=== PATIENT | male | born 2000 | race Caucasian/White ===

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

== ENCOUNTER 2020-12-25 15:26 | Emergency (ER) | payer SELFPAY ==
[~2020-12-25] VITALS: Ht 165.1 cm; Wt 76.5 kg
[2020-12-25 17:38] VITALS: BP 129/85
--- NOTE | 2020-12-25 17:39 | EKG ---
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
[2020-12-25 18:05] LABS: BASO % 0 % (0-3); EOS % 0 % (0-3); HEMATOCRIT 51.4 % (39.0-53.0); HEMOGLOBIN 17.5 g/dL (13.0-17.5); LYMPH # 1.9 x10^3/uL (1.0-4.8); LYMPH % 25 % (24-48); MEAN CORPUSCULAR HEMOGLOBIN 32 pg (25-35); MEAN CORPUSCULAR HGB CONC 34 g/dL (31-37); MEAN CORPUSCULAR VOLUME 92 fL (79-100); MONO # 0.5 x10^3/uL (0.0-1.1); MONO % 7 % (0-9); NEUT % 67 % (31-73); PLATELET COUNT 360 x10^3/uL (140-400); RED BLOOD COUNT 5.56 x10^6/uL (4.30-5.70); RED CELL DISTRIBUTION WIDTH 13.5 % (11.5-14.5); WHITE BLOOD COUNT 7.4 x10^3/uL (4.0-11.0)
[2020-12-25 18:18] LABS: CALCIUM 8.6 mg/dL (8.5-10.1); CREATININE 0.8 mg/dL (0.7-1.3); GFR 123.2; POTASSIUM 3.2 mmol/L (3.5-5.1)
[2020-12-25 18:27] LABS: ALBUMIN 4.1 g/dL (3.4-5.0); ALBUMIN/GLOBULIN RATIO 1.1 (1.0-1.7); TOTAL BILIRUBIN 0.7 mg/dL (0.2-1.0); TOTAL PROTEIN 7.8 g/dL (6.4-8.2)
--- NOTE | 2020-12-25 19:49 | PHYS DOC ---
Past Medical History Past Medical History: No Pertinent History Past Surgical History: Other Additional Past Surgical Histo: BILATERAL WRISTS, Smoking Status: Current Every Day Smoker Additional Information: pt vapes Alcohol Use: Heavy Drug Use: None Social History Narrative: unknown drug last night, states possibly cocaine General Adult EDM: Chief Complaint: HEMATEMESIS/VOMITING BLOOD HPI: HPI: Patient is a 20 year old male who presents with nausea/vomiting. Patient states "I noticed he had blood in my vomit this morning". Patient reports episode happened 1 time. Patient states "I drink a lot last night and I also think I made it and cocaine but I am not sure". Patient states he normally does not do drugs or drink often. Denies medical history. Denies daily meds. Patient uses a vape. Review of Systems: Review of Systems: ROS At least 10 ROS systems have been reviewed and are negative except as documented in the HPI. General: Negative except as outlined in HPI above. Skin: Negative except as outlined in HPI above. HEENT: Negative except as outlined in HPI above. Neck: Negative except as outlined in HPI above. Respiratory: Negative except as outlined in HPI above.. Cardiovascular: Negative except as outlined in HPI above. Abdomen: Negative except as outlined in HPI above. : Negative except as outlined in HPI above. Back/MSK: Negative except as outlined in HPI above. Neuro: Negative except as outlined in HPI above. Psych: Negative except as outlined in HPI above. Heart Score: C/O Chest Pain: No Risk Factors: Risk Factors: DM, Current or recent (<one month) smoker, HTN, HLP, family history of CAD, obesity. Risk Scores: Score 0 - 3: 2.5% MACE over next 6 weeks - Discharge Home Score 4 - 6: 20.3% MACE over next 6 weeks - Admit for Clinical Observation Score 7 - 10: 72.7% MACE over next 6 weeks - Early Invasive Strategies Allergies: Allergies: Allergies Coded Allergies Type Severity Reaction Last Updated Verified No Known Drug Allergies 07/29/18 No Physical Exam: PE: Constitutional: Well developed, well nourished, no acute distress, non-toxic appearance. [] HENT: Normocephalic, atraumatic, bilateral external ears normal, oropharynx moist, no oral exudates, nose normal. [] Eyes: PERRLA, EOMI, conjunctiva normal, no discharge. [] Neck: Normal range of motion, no tenderness, supple, no stridor. [] Cardiovascular:Heart rate regular rhythm, no murmur [] Lungs & Thorax: Bilateral breath sounds clear to auscultation [] Abdomen: Bowel sounds normal, soft, no tenderness Skin: Warm, dry, no erythema, no rash. [] Back: No tenderness, no CVA tenderness. [] Extremities: No tenderness, no cyanosis, no clubbing, ROM intact, no edema. [] Neurologic: Alert and oriented X 3, normal motor function, normal sensory function, no focal deficits noted. [] Psychologic: Affect normal, judgement normal, mood normal. [] Current Patient Data: Labs: Laboratory Tests Test 12/25/20 16:20 White Blood Count 7.4 x10^3/uL (4.0-11.0) Red Blood Count 5.56 x10^6/uL (4.30-5.70) Hemoglobin 17.5 g/dL (13.0-17.5) Hematocrit 51.4 % (39.0-53.0) Mean Corpuscular Volume 92 fL (79-100) Mean Corpuscular Hemoglobin 32 pg (25-35) Mean Corpuscular Hemoglobin Concent 34 g/dL (31-37) Red Cell Distribution Width 13.5 % (11.5-14.5) Platelet Count 360 x10^3/uL (140-400) Neutrophils (%) (Auto) 67 % (31-73) Lymphocytes (%) (Auto) 25 % (24-48) Monocytes (%) (Auto) 7 % (0-9) Eosinophils (%) (Auto) 0 % (0-3) Basophils (%) (Auto) 0 % (0-3) Neutrophils # (Auto) 5.0 x10^3/uL (1.8-7.7) Lymphocytes # (Auto) 1.9 x10^3/uL (1.0-4.8) Monocytes # (Auto) 0.5 x10^3/uL (0.0-1.1) Eosinophils # (Auto) 0.0 x10^3/uL (0.0-0.7) Basophils # (Auto) 0.0 x10^3/uL (0.0-0.2) Sodium Level 144 mmol/L (136-145) Potassium Level 3.2 mmol/L (3.5-5.1) L Chloride Level 102 mmol/L (98-107) Carbon Dioxide Level 31 mmol/L (21-32) Anion Gap 11 (6-14) Blood Urea Nitrogen 3 mg/dL (8-26) L Creatinine 0.8 mg/dL (0.7-1.3) Estimated GFR (Cockcroft-Gault) 123.2 BUN/Creatinine Ratio 4 (6-20) L Glucose Level 90 mg/dL (70-99) Calcium Level 8.6 mg/dL (8.5-10.1) Total Bilirubin 0.7 mg/dL (0.2-1.0) Aspartate Amino Transferase (AST) 162 U/L (15-37) H Alanine Aminotransferase (ALT) 168 U/L (16-63) H Alkaline Phosphatase 158 U/L (46-116) H Total Protein 7.8 g/dL (6.4-8.2) Albumin 4.1 g/dL (3.4-5.0) Albumin/Globulin Ratio 1.1 (1.0-1.7) Laboratory Tests 12/25/20 16:20 Laboratory Tests 12/25/20 16:20 Vital Signs: Vital Signs Date Time Temp Pulse Resp B/P (MAP) Pulse Ox O2 Delivery O2 Flow Rate FiO2 12/25/20 17:38 102 18 129/85 (100) 97 Room Air 12/25/20 16:02 98.4 98.4 EKG: EKG: [] Radiology/Procedures: Radiology/Procedures: [] Course & Med Decision Making: Course & Med Decision Making Pertinent Labs and Imaging studies reviewed. (See chart for details) [] 20-year-old male presents with hematemsis, nausea , and abdominal pain. Patient reports one episode of vomiting. Work-up in the ER consisted of labs, CT abdomen, urinalysis. Pain treated in the ER. Patient is hemodynamically stable on arrival. All labs unremarkable. Patient is refusing CT of his abdomen. Patient stating he wants to leave the ER because he feels better. Patient signed AMA paperwork. Hemodynamically stable upon disposition. Dragon Disclaimer: Dragon Disclaimer: This electronic medical record was generated, in whole or in part, using a voice recognition dictation system. Departure Departure Impression: Primary Impression: Abdominal pain Qualified Codes: R10.9 - Unspecified abdominal pain Additional Impression: Nausea & vomiting Qualified Codes: R11.2 - Nausea with vomiting, unspecified Disposition: 07 LEFT AGAINST MEDICAL ADVICE Condition: STABLE Referrals: NO PCP (PCP) NUBIA BEACH APRN Dec 25, 2020 19:49
== END 2020-12-26 00:13 | disposition left against medical advice (07) ==
LOC: ER 15:26
DX: R11.2 Nausea with vomiting, unspecified (principal); R10.9 Unspecified abdominal pain; F17.200 Nicotine dependence, unspecified, uncomplicated; F10.20 Alcohol dependence, uncomplicated; Y90.9 Presence of alcohol in blood, level not specified
CPT/HCPCS: 36415; 80053; 83690; 85025; 93005; 99284

== ENCOUNTER 2021-04-05 13:53 | Inpatient (IN) | payer OTHER ==
[~2021-04-05] VITALS: Ht 175.3 cm; Wt 75.0 kg
[2021-04-05] MEDS ORDERED: FAMOTIDINE 20 MG/2 ML VIAL IVP ONE (14:30)
[2021-04-05] MEDS ORDERED: IV NORMAL SALINE 1000ML BAG 1,000 ML IV ONE (14:30)
[2021-04-05] MEDS ORDERED: ONDANSETRON PF 4 MG/2 ML VIAL. IVP ONE (14:30)
[2021-04-05] MEDS ORDERED: MULTIVIT INFUSN,ADULT 4,VIT K 10 ML, THIAMINE INJ 100 MG, FOLIC ACID INJ 1 MG in IV NOR... IV ONE (14:30)
[2021-04-05 14:35] LABS: BASO # 0.1 x10^3/uL (0.0-0.2); BASO % 1 % (0-3); EOS % 0 % (0-3); HEMATOCRIT 51.7 % (39.0-53.0); HEMOGLOBIN 18.1 g/dL (13.0-17.5); LYMPH # 1.6 x10^3/uL (1.0-4.8); LYMPH % 18 % (24-48); MEAN CORPUSCULAR HEMOGLOBIN 32 pg (25-35); MEAN CORPUSCULAR HGB CONC 35 g/dL (31-37); MEAN CORPUSCULAR VOLUME 90 fL (79-100); MONO # 0.7 x10^3/uL (0.0-1.1); MONO % 8 % (0-9); NEUT # 6.3 x10^3/uL (1.8-7.7); NEUT % 74 % (31-73); PLATELET COUNT 409 x10^3/uL (140-400); RED BLOOD COUNT 5.75 x10^6/uL (4.30-5.70); RED CELL DISTRIBUTION WIDTH 13.3 % (11.5-14.5); WHITE BLOOD COUNT 8.6 x10^3/uL (4.0-11.0)
[2021-04-05 14:43] LABS: CALCIUM 9.1 mg/dL (8.5-10.1); CREATININE 0.8 mg/dL (0.7-1.3); GFR 123.2; POTASSIUM 3.2 mmol/L (3.5-5.1)
[2021-04-05 14:50] LABS: ALBUMIN 4.3 g/dL (3.4-5.0); MAGNESIUM 1.7 mg/dL (1.8-2.4); TOTAL BILIRUBIN 1.4 mg/dL (0.2-1.0); TOTAL PROTEIN 8.4 g/dL (6.4-8.2)
[2021-04-05] MEDS ORDERED: POTASSIUM CHLORIDE 10 MEQ TABLET.ER. PO ONE (15:00)
[2021-04-05] MEDS ORDERED: MAGNESIUM SULFATE 2GM 50 ML IV ONE (15:00)
--- NOTE | 2021-04-05 15:13 | PHYS DOC ---
Past Medical History Past Medical History: No Pertinent History Additional Past Medical Histor: alcohol use disorder Past Surgical History: Other Additional Past Surgical Histo: BILATERAL WRISTS, Smoking Status: Never Smoker Alcohol Use: Heavy Drug Use: None General Adult EDM: Chief Complaint: WITHDRAWL HPI: HPI: Patient is a 20 year old M who presents with intractable nausea/vomiting. He reports epigastric pain and dysphagia associated with intractable nausea and vomiting. Patient also reports tremors and mild headache. Patient reports that he drinks 99 proof alcohol 750ml daily for the past 6-8 months. Patient reports his last drink was at 2 AM last night. Patient also reports having checked out to facility 1 month ago for alcohol withdrawal. Patient denies history of alcohol withdrawal related seizure. Review of Systems: Review of Systems: Constitutional: Denies fever or chills. Eyes: Denies redness or eye pain. HENT: Denies nasal congestion or sore throat. Respiratory: Denies cough or shortness of breath. Cardiovascular: Denies chest pain or palpitations. GI: Reports abdominal pain, nausea/vomiting, dysphagia : Denies dysuria or hematuria. Musculoskeletal: Denies back pain or joint pain. Integument: Denies rash or skin lesions . Neurologic: Denies headache, focal weakness or sensory changes. Complete systems were reviewed and found to be within normal limits, except as documented in this note. Heart Score: C/O Chest Pain: No Current Medications: Current Medications Medications (Trade) Dose Ordered Sig/Stewart Start Time Stop Time Status Last Admin Dose Admin Famotidine (Pepcid Vial) 20 mg 1X ONCE 04/05/21 14:30 04/05/21 14:31 DC 04/05/21 14:37 20 MG Lorazepam (Ativan Inj) 1 mg 1X ONCE 04/05/21 14:30 04/05/21 14:31 DC 04/05/21 14:40 1 MG Magnesium Sulfate 50 ml @ 25 mls/hr 1X ONCE 04/05/21 15:00 04/05/21 16:59 Multivitamins 10 ml/Thiamine HCl 100 mg/Folic Acid 1 mg/Sodium Chloride 1,011.2 ml @ 1,000.088 mls/hr 1X ONCE 04/05/21 14:30 04/05/21 15:30 04/05/21 14:36 1,000.088 MLS/HR Ondansetron HCl (Zofran) 4 mg 1X ONCE 04/05/21 14:30 04/05/21 14:31 DC 04/05/21 14:37 4 MG Potassium Chloride (Klor-Con) 40 meq 1X ONCE 04/05/21 15:00 04/05/21 15:01 DC Sodium Chloride 1,000 ml @ 1,000 mls/hr 1X ONCE 04/05/21 14:30 04/05/21 15:29 04/05/21 14:30 1,000 MLS/HR Allergies: Allergies: Allergies Coded Allergies Type Severity Reaction Last Updated Verified No Known Drug Allergies 04/05/21 No Physical Exam: PE: Constitutional: Well developed, acute distress, tremulous. HENT: Normocephalic, atraumatic. Eyes: PERRL, EOMI, conjunctiva normal, no discharge. Neck: Normal range of motion, no tenderness, supple. Lungs & Thorax: No respiratory distress, equal chest rise and fall. Abdomen: Soft, no tenderness. Skin: Warm, dry, no erythema, no rash. Back: No tenderness, no CVA tenderness. Extremities: No tenderness, ROM intact, no edema. Neurologic: Alert and oriented X4, normal motor function, normal sensory function, no focal deficits noted. No horizontal nystagmus. Psychologic: Affect normal, judgment normal. Current Patient Data: Labs: Laboratory Tests Test 04/05/21 14:29 White Blood Count 8.6 x10^3/uL (4.0-11.0) Red Blood Count 5.75 x10^6/uL (4.30-5.70) H Hemoglobin 18.1 g/dL (13.0-17.5) H Hematocrit 51.7 % (39.0-53.0) Mean Corpuscular Volume 90 fL (79-100) Mean Corpuscular Hemoglobin 32 pg (25-35) Mean Corpuscular Hemoglobin Concent 35 g/dL (31-37) Red Cell Distribution Width 13.3 % (11.5-14.5) Platelet Count 409 x10^3/uL (140-400) H Neutrophils (%) (Auto) 74 % (31-73) H Lymphocytes (%) (Auto) 18 % (24-48) L Monocytes (%) (Auto) 8 % (0-9) Eosinophils (%) (Auto) 0 % (0-3) Basophils (%) (Auto) 1 % (0-3) Neutrophils # (Auto) 6.3 x10^3/uL (1.8-7.7) Lymphocytes # (Auto) 1.6 x10^3/uL (1.0-4.8) Monocytes # (Auto) 0.7 x10^3/uL (0.0-1.1) Eosinophils # (Auto) 0.0 x10^3/uL (0.0-0.7) Basophils # (Auto) 0.1 x10^3/uL (0.0-0.2) Sodium Level 139 mmol/L (136-145) Potassium Level 3.2 mmol/L (3.5-5.1) L Chloride Level 97 mmol/L (98-107) L Carbon Dioxide Level 29 mmol/L (21-32) Anion Gap 13 (6-14) Blood Urea Nitrogen 6 mg/dL (8-26) L Creatinine 0.8 mg/dL (0.7-1.3) Estimated GFR (Cockcroft-Gault) 123.2 BUN/Creatinine Ratio 8 (6-20) Glucose Level 108 mg/dL (70-99) H Calcium Level 9.1 mg/dL (8.5-10.1) Magnesium Level 1.7 mg/dL (1.8-2.4) L Total Bilirubin 1.4 mg/dL (0.2-1.0) H Aspartate Amino Transferase (AST) 133 U/L (15-37) H Alanine Aminotransferase (ALT) 139 U/L (16-63) H Alkaline Phosphatase 223 U/L (46-116) H Total Protein 8.4 g/dL (6.4-8.2) H Albumin 4.3 g/dL (3.4-5.0) Albumin/Globulin Ratio 1.0 (1.0-1.7) Ethyl Alcohol Level 46 mg/dL (0-10) H Laboratory Tests 04/05/21 14:29 Laboratory Tests 04/05/21 14:29 Vital Signs: Vital Signs Date Time Temp Pulse Resp B/P (MAP) Pulse Ox O2 Delivery O2 Flow Rate FiO2 04/05/21 14:02 98.5 104 22 170/102 (124) 96 98.5 Course & Med Decision Making: Course & Med Decision Making Pertinent Labs and Imaging studies reviewed. (See chart for details) Patient presents with intractable nausea vomiting secondary to alcohol withdrawal. On presentation to the ED, vital signs stable. CIWA score on p resentation was 21. Blood alcohol level of 46. BMP significant for hypokalemia, hypomagnesemia, and elevated AST/ALT. In ED, patient was given fluid resuscitation with multivitamin, thiamine and electrolyte repletion. Patient given antiemetic and Ativan 1 mg x1. Placed on CIWA protocol. Patient requiring admission for further evaluation and treatment. Discussed with Dr. Brandt who is in agreement with admission. Discussed findings and plan with patient, who acknowledges understanding and agreement. Nayeli Disclaimer: Dragon Disclaimer: This electronic medical record was generated, in whole or in part, using a voice recognition dictation system. Departure Departure Referrals: NO PCP (PCP) PHAM STEEN DO Apr 05, 2021 15:13
[2021-04-05] MEDS ORDERED: ONDANSETRON PF 4 MG/2 ML VIAL. IVP PRN (15:15)
[2021-04-05] MEDS: IV NORMAL SALINE 1000ML BAG 1,000 ML IV SCH (16:36)
[2021-04-05 16:56] LABS: BARBITURATES NEG (NEG); BENZODIAZEPINES POS (NEG); CANNABINOIDS NEG (NEG); CLARITY,URINE CLEAR; COCAINE NEG (NEG); COLOR,URINE YELLOW; METHADONE NEG (NEG); OPIATES NEG (NEG); PHENCYCLIDINE NEG (NEG)
[2021-04-05 16:58] LABS: BILIRUBIN,URINE NEGATIVE (NEG); NITRITE,URINE NEGATIVE (NEG); PH,URINE 8.5 (<5.0-8.0); PROTEIN,URINE 30 mg/dL (NEG-TRACE); RBC,URINE 0 /HPF (0-2)
[2021-04-05 16:59] LABS: AMPHETAMINE/METHAMPHETAMINE NEG (NEG); BACTERIA,URINE 0 /HPF (0-FEW); WBC,URINE 0 /HPF (0-4)
--- NOTE | 2021-04-05 16:59 | HP ---
DATE OF SERVICE: 04/05/2021 ADMIT DATE: 04/05/2021 CHIEF COMPLAINT: Nausea, vomiting and alcohol withdrawal. HISTORY OF PRESENT ILLNESS: The patient is a pleasant middle-aged healthy male who drinks too much. He has been drinking a lot of 100 proof vodka. He has now developed intractable nausea and vomiting, so he cannot drink, so now he has alcohol withdrawal. I discussed the case with the ER physician. We are going to admit the patient, give him alcohol withdrawal protocol. PAST MEDICAL HISTORY: Alcoholism, bilateral wrist surgery. ALLERGIES: None. FAMILY HISTORY: Alcoholism. SOCIAL HISTORY: He drinks about a liter of 100 proof vodka a day. MEDICATIONS: Reviewed. Please refer to the MRAD. REVIEW OF SYSTEMS: GENERAL: No history of weight change, weakness or fevers. SKIN: No bruising, hair changes or rashes. EYES: No blurred, double or loss of vision. NOSE AND THROAT: No history of nosebleeds, hoarseness or sore throat. HEART: No history of palpitations, chest pain or shortness of breath on exertion. LUNGS: Denies cough, hemoptysis, wheezing or shortness of breath. GASTROINTESTINAL: He complains of nausea, vomiting. GENITOURINARY: No history of frequency, urgency, hesitancy or nocturia. NEUROLOGIC: He complains of shaking. PSYCHIATRIC: No history of panic, anxiety or depression. ENDOCRINE: No history of heat or cold intolerance, polyuria or polydipsia. EXTREMITIES: Denies muscle weakness, joint pain, pain on walking or stiffness. PHYSICAL EXAMINATION: VITALS: Within normal limits and are stable. GENERAL: No apparent distress. Alert and oriented. HEENT: Normal cephalic atraumatic, external auditory canals are patent. EYES: Extraocular muscles are intact, pupils are equally round and reactive to light and accommodation. MUSCULOSKELETAL: Well developed, well nourished, good range of motion. ENDOCRINE: No thyromegaly was palpated. LYMPHATICS: No cervical chain or axillary nodes were noted. HEMATOPOIETIC: No bruising. NECK: Supple, no JVD, no thyromegaly was noted. LUNGS: Clear to auscultation in all lung greene without rhonchi or wheezing. HEART: RRR, S1, S2 present. Peripheral pulses intact, no obvious murmurs were noted. ABDOMEN: Soft, nontender. Positive bowel sounds no organomegaly, normal bowel sounds. EXTREMITIES: Without any cyanosis, clubbing, or edema. Pedal pulses intact, Homans sign is negative. NEUROLOGIC: Normal speech, normal tone. A and O x 3, moves all extremities, no obvious focal deficits. PSYCHIATRIC: Normal affect, normal mood. Stable. SKIN: No ulcerations or rashes, good skin turgor, no jaundice. VASCULAR: Good capillary refill, neurovascular bundle appears to be intact. LABORATORY DATA: Hemoglobin is 18.1. Potassium is 3.2, magnesium 1.7, AST and ALT are high at 133 and 139 respectively. Alkaline phosphatase also high at 223. ASSESSMENT AND PLAN: Alcohol withdrawal. The patient has been admitted. We will start alcohol withdrawal protocol, vitamins and benzos, IV fluids, home meds. Deep venous thrombosis prophylaxis. Full code. Consult manager social media for possible alcohol treatment center. I told the patient to please quit drinking or this could negatively affect his health. CIRO DR: Elmo TID: [id number]
[2021-04-05 17:28] VITALS: BP 146/83
[2021-04-05 19:00] VITALS: BP 130/82
[2021-04-05 23:00] VITALS: BP 126/62
[2021-04-06] MEDS: IV NORMAL SALINE 1000ML BAG 1,000 ML IV SCH ×2 (01:30→07:15)
[2021-04-06 03:14] VITALS: BP 116/77
[2021-04-06 07:00] VITALS: BP 126/67
[2021-04-06] MEDS: PANTOPRAZOLE IV PUSH 40 MG VIAL. IVP SCH (07:44)
[2021-04-06 11:00] VITALS: BP 114/61
--- NOTE | 2021-04-06 11:27 | NUR ---
Reviewed assessment documentation from Hal Cisneros. Sarah Bermudez RN [facility]
[2021-04-06] MEDS ORDERED: SENNOSIDES/DOCUSATE 8.6/50MG TABLET. PO PRN (12:00)
--- NOTE | 2021-04-06 12:14 | PDOC ---
[facility] PROGRESS NOTE Date of Service DOS: DATE: 04/06/21 TIME: 12:13 Chief Complaint Chief Complaint Alcohol withdrawal. The patient has been admitted. We will start alcohol withdrawal protocol, vitamins and benzos, IV fluids, home meds. Deep venous thrombosis prophylaxis. Full code. Consult director of social media marketing for possible alcohol treatment center. . History of Present Illness History of Present Illness 04/06 Evaluate examined at bedside. Resting in bed. Difficult to wake. Told me he is not feeling well and would just like to sleep. Closely monitor for signs of withdrawal. Pat consult. Discussed with bedside RN. Vitals/I&O Vitals/I&O: Vital Signs Date Time Temp Pulse Resp B/P (MAP) Pulse Ox O2 Delivery O2 Flow Rate FiO2 04/06/21 11:00 98.7 80 18 114/61 (78) 98 Room Air 98.7 I & O 04/05/21 04/05/21 04/06/21 15:00 23:00 07:00 Intake Total 2050 ml 300 ml Output Total 650 ml Balance 2050 ml -350 ml Physical Exam General: Alert, Oriented X3, Cooperative, mild distress Heart: Regular rate, Normal S1, Normal S2 Lungs: Clear Abdomen: Normal bowel sounds, Soft, No tenderness Extremities: No edema, Normal pulses Skin: No significant lesion Labs Labs: Laboratory Tests Test 04/05/21 14:29 04/05/21 15:09 04/05/21 16:42 White Blood Count 8.6 x10^3/uL (4.0-11.0) Red Blood Count 5.75 x10^6/uL (4.30-5.70) Hemoglobin 18.1 g/dL (13.0-17.5) Hematocrit 51.7 % (39.0-53.0) Mean Corpuscular Volume 90 fL (79-100) Mean Corpuscular Hemoglobin 32 pg (25-35) Mean Corpuscular Hemoglobin Concent 35 g/dL (31-37) Red Cell Distribution Width 13.3 % (11.5-14.5) Platelet Count 409 x10^3/uL (140-400) Neutrophils (%) (Auto) 74 % (31-73) Lymphocytes (%) (Auto) 18 % (24-48) Monocytes (%) (Auto) 8 % (0-9) Eosinophils (%) (Auto) 0 % (0-3) Basophils (%) (Auto) 1 % (0-3) Neutrophils # (Auto) 6.3 x10^3/uL (1.8-7.7) Lymphocytes # (Auto) 1.6 x10^3/uL (1.0-4.8) Monocytes # (Auto) 0.7 x10^3/uL (0.0-1.1) Eosinophils # (Auto) 0.0 x10^3/uL (0.0-0.7) Basophils # (Auto) 0.1 x10^3/uL (0.0-0.2) Sodium Level 139 mmol/L (136-145) Potassium Level 3.2 mmol/L (3.5-5.1) Chloride Level 97 mmol/L (98-107) Carbon Dioxide Level 29 mmol/L (21-32) Anion Gap 13 (6-14) Blood Urea Nitrogen 6 mg/dL (8-26) Creatinine 0.8 mg/dL (0.7-1.3) Estimated GFR (Cockcroft-Gault) 123.2 BUN/Creatinine Ratio 8 (6-20) Glucose Level 108 mg/dL (70-99) Calcium Level 9.1 mg/dL (8.5-10.1) Magnesium Level 1.7 mg/dL (1.8-2.4) Total Bilirubin 1.4 mg/dL (0.2-1.0) Aspartate Amino Transf (AST/SGOT) 133 U/L (15-37) Alanine Aminotransferase (ALT/SGPT) 139 U/L (16-63) Alkaline Phosphatase 223 U/L (46-116) Total Protein 8.4 g/dL (6.4-8.2) Albumin 4.3 g/dL (3.4-5.0) Albumin/Globulin Ratio 1.0 (1.0-1.7) Lipase 67 U/L (73-393) Ethyl Alcohol Level 46 mg/dL (0-10) SARS-CoV-2 Antigen (Rapid) Negative (NEGATIVE) Urine Collection Type Unknown Urine Color Yellow Urine Clarity Clear Urine pH 8.5 (<5.0-8.0) Urine Specific [place] 1.015 (1.000-1.030) Urine Protein 30 mg/dL (NEG-TRACE) Urine Glucose (UA) Negative mg/dL (NEG) Urine Ketones (Stick) Negative mg/dL (NEG) Urine Blood Negative (NEG) Urine Nitrite Negative (NEG) Urine Bilirubin Negative (NEG) Urine Urobilinogen Dipstick 1.0 mg/dL (0.2 mg/dL) Urine Leukocyte Esterase Negative (NEG) Urine RBC 0 /HPF (0-2) Urine WBC 0 /HPF (0-4) Urine Squamous Epithelial Cells /LPF Urine Bacteria 0 /HPF (0-FEW) Urine Mucus Slight /LPF Urine Opiates Screen Neg (NEG) Urine Methadone Screen Neg (NEG) Urine Barbiturates Neg (NEG) Urine Phencyclidine Screen Neg (NEG) Urine Amphetamine/Methamphetamine Neg (NEG) Urine Benzodiazepines Screen Pos (NEG) Urine Cocaine Screen Neg (NEG) Urine Cannabinoids Screen Neg (NEG) Urine Ethyl Alcohol Pos (NEG) Comment Review of Relevant I have reviewed the following items joyce (where applicable) has been applied. Medications: Current Medications Medications (Trade) Dose Ordered Sig/Stewart Route PRN Reason Start Time Stop Time Status Last Admin Dose Admin Sodium Chloride 1,000 ml @ 1,000 mls/hr 1X ONCE IV 04/05/21 14:30 04/05/21 15:29 DC 04/05/21 14:30 Multivitamins 10 ml/Thiamine HCl 100 mg/Folic Acid 1 mg/Sodium Chloride 1,011.2 ml @ 1,000.088 mls/hr 1X ONCE IV 04/05/21 14:30 04/05/21 15:30 DC 04/05/21 14:36 Lorazepam (Ativan Inj) 1 mg 1X ONCE IVP 04/05/21 14:30 04/05/21 14:31 DC 04/05/21 14:40 Ondansetron HCl (Zofran) 4 mg 1X ONCE IVP 04/05/21 14:30 04/05/21 14:31 DC 04/05/21 14:37 Famotidine (Pepcid Vial) 20 mg 1X ONCE IVP 04/05/21 14:30 04/05/21 14:31 DC 04/05/21 14:37 Magnesium Sulfate 50 ml @ 25 mls/hr 1X ONCE IV 04/05/21 15:00 04/05/21 16:59 DC 04/05/21 15:00 Potassium Chloride (Klor-Con) 40 meq 1X ONCE PO 04/05/21 15:00 04/05/21 15:01 DC 04/05/21 15:25 Lorazepam (Ativan Inj) 2 mg PRN Q1HR PRN IV For CIWA 15 or greater 04/05/21 15:15 04/06/21 10:32 Sodium Chloride 1,000 ml @ 125 mls/hr Q8H IV 04/05/21 15:15 04/06/21 15:14 04/06/21 07:15 Pantoprazole Sodium (PROTONIX VIAL for IV PUSH) 40 mg DAILY IVP 04/06/21 09:00 04/06/21 07:44 Justifications for Admission Other Justification HUY WHYTE MD Apr 06, 2021 12:14
[2021-04-06] MEDS: MULTIVIT INFUSN,ADULT 4,VIT K 10 ML, THIAMINE INJ 100 MG, FOLIC ACID INJ 1 MG in IV NOR... IV SCH (13:51)
[2021-04-06 15:00] VITALS: BP 122/63
[2021-04-06 19:20] VITALS: BP 131/71
[2021-04-06 23:09] VITALS: BP 125/69
[2021-04-07 07:00] VITALS: BP 118/62
[2021-04-07] MEDS: PANTOPRAZOLE IV PUSH 40 MG VIAL. IVP SCH (07:55)
[2021-04-07 11:00] VITALS: BP 124/66
[2021-04-07] MEDS: MULTIVIT INFUSN,ADULT 4,VIT K 10 ML, THIAMINE INJ 100 MG, FOLIC ACID INJ 1 MG in IV NOR... IV SCH (11:06)
[2021-04-07] MEDS ORDERED: PANT40TA77 PO (11:10)
[2021-04-07] MEDS ORDERED: LORA2TAB89 PO (11:12)
[2021-04-07] MEDS ORDERED: PANTOPRAZOLE 40 MG TABLET.DR. PO ONE (11:30)
[2021-04-07] MEDS ORDERED: LIDO:MAALOX 1:1 20 ML SINGLE DOSE. PO ONE (11:30)
--- NOTE | 2021-04-07 11:44 | PDOC3 ---
[facility]-Discharge Summary Date of Admission: Date of Admission: Apr 05, 2021 Date of Discharge: Date of Discharge: Apr 07, 2021 Admission Diagnosis: Problems: (1) Alcohol withdrawal Hospital Course: Hospital Course: Chief Complaint Alcohol withdrawal. The patient has been admitted. We will start alcohol withdrawal protocol, vitamins and benzos, IV fluids, home meds. Deep venous thrombosis prophylaxis. Full code. Consult licensed clinical social worker for possible alcohol treatment center. . History of Present Illness History of Present Illness 04/06 Evaluate examined at bedside. Resting in bed. Difficult to wake. Told me he is not feeling well and would just like to sleep. Closely monitor for signs of withdrawal. Pat consult. Discussed with bedside RN. 04/07 Evaluate examined at bedside. Up on side of bed dressed in street clothes. Says he was feeling overall much better but having little abdominal pain still. Either way back to discharge. Will try GI cocktail. Continue Protonix. Advised him to quit drinking and informed him where he could find resources for rehab. Denied any SI HI. Greater than 30 minutes spent on discharge. 18 minutes advance care planning. Disposition: Disposition/Orders: D/C to Home Activity: Activity: Resume previous activity Diet: Diet: Regular Medications: Home Meds Active Scripts Lorazepam (ATIVAN) 2 Mg Tablet, 2 MG PO PRN Q4HRS PRN for TREMORS for 10 Days, #20 TAB Prov:HUY WHYTE MD 04/07/21 Pantoprazole Sodium (PANTOPRAZOLE SODIUM ) 40 Mg Tablet.dr, 40 MG PO DAILY for abd pain for 30 Days, #30 TAB.SR Prov:HUY WHYTE MD 04/07/21 Scheduled Pantoprazole Sodium (Pantoprazole Sodium ), 40 MG PO DAILY Scheduled PRN Lorazepam (Ativan), 2 MG PO PRN Q4HRS PRN for TREMORS Justicifation of Admission Dx: Justifications for Admission: Justification of Admission Dx: Yes (Alcohol withdrawal) HUY WHYTE MD Apr 07, 2021 11:44
--- NOTE | 2021-04-07 14:15 | NUR ---
Discharge Note: Patient was discharged home with self care. Patient removed own IV. Patient was given discharge summary/inatructions, follow-ups, and educational material. Patients prescriptions were sent to patients preferred pharmacy. RN asked to stay longer to talk to the PAT team patient stated he had called an [employer] and would be here in 8 minutes. Patient stated he understand the importance of not drinking anymore. PAT team to follow-up with patient. Patient was taken down to the main entrance accompanied by REINA Gaytan, where [employer] cab was waiting for him.
[2021-04-11] MEDS ORDERED: FOLIC ACID 1 MG TABLET. PO SCH (09:00)
[2021-04-11] MEDS ORDERED: THIAMINE 100 MG TABLET. PO SCH (09:00)
[2021-04-11] MEDS ORDERED: MULTIVITAMIN with MINERAL TABLET. PO SCH (09:00)
== END 2021-04-07 14:30 | disposition home or self-care (01) | DRG 897 ==
LOC: ER 13:53 → 5 NORTH 15:15
PROVIDERS: ADMIT Internal Medicine; ATTEND Internal Medicine
DX: F10.239 Alcohol dependence with withdrawal, unspecified (principal); R13.10 Dysphagia, unspecified; Y90.2 Blood alcohol level of 40-59 mg/100 ml; Z81.1 Family history of alcohol abuse and dependence
CPT/HCPCS: 36415; 80053; 80307; 81001; 83690; 83735; 85025; 87426; C9113; G0480; J2060; J2405; J3411; J3475; J3490; J7030; U0003; 99285-25; G0378

== ENCOUNTER 2021-04-14 14:00 | Emergency (ER) | payer OTHER ==
[~2021-04-14] VITALS: Ht 175.3 cm; Wt 78.0 kg
[~2021-04-14 14:00] MED LIST: LORA2TAB89 PO; PANT40TA77 PO
[2021-04-14] MEDS ORDERED: ONDANSETRON PF 4 MG/2 ML VIAL. IVP ONE (14:45)
[2021-04-14] MEDS ORDERED: IV NORMAL SALINE 1000ML BAG 1,000 ML IV ONE (14:45)
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
[2021-04-14] MEDS ORDERED: MULTIVIT INFUSN,ADULT 4,VIT K 10 ML, THIAMINE INJ 100 MG, FOLIC ACID INJ 1 MG in IV NOR... IV ONE (15:00)
[2021-04-14 16:08] LABS: BASO % 1 % (0-3); EOS % 0 % (0-3); HEMOGLOBIN 15.9 g/dL (13.0-17.5); LYMPH % 17 % (24-48); MEAN CORPUSCULAR HEMOGLOBIN 31 pg (25-35); MEAN CORPUSCULAR HGB CONC 34 g/dL (31-37); MEAN CORPUSCULAR VOLUME 92 fL (79-100); MONO # 0.3 x10^3/uL (0.0-1.1); MONO % 5 % (0-9); NEUT # 4.7 x10^3/uL (1.8-7.7); NEUT % 77 % (31-73); PLATELET COUNT 351 x10^3/uL (140-400); RED BLOOD COUNT 5.13 x10^6/uL (4.30-5.70); RED CELL DISTRIBUTION WIDTH 13.5 % (11.5-14.5); WHITE BLOOD COUNT 6.1 x10^3/uL (4.0-11.0)
[2021-04-14 16:20] LABS: BARBITURATES NEG (NEG); BENZODIAZEPINES NEG (NEG); CANNABINOIDS NEG (NEG); COCAINE NEG (NEG); METHADONE NEG (NEG); OPIATES NEG (NEG); PHENCYCLIDINE NEG (NEG)
[2021-04-14 16:21] LABS: CALCIUM 7.7 mg/dL (8.5-10.1); CREATININE 0.8 mg/dL (0.7-1.3); GFR 123.2; POTASSIUM 3.5 mmol/L (3.5-5.1)
[2021-04-14 16:27] LABS: ALBUMIN 3.4 g/dL (3.4-5.0); ALBUMIN/GLOBULIN RATIO 0.9 (1.0-1.7); MAGNESIUM 1.9 mg/dL (1.8-2.4); TOTAL BILIRUBIN 0.3 mg/dL (0.2-1.0)
[2021-04-14 16:30] LABS: AMPHETAMINE/METHAMPHETAMINE NEG (NEG)
[2021-04-14 16:36] LABS: ACETAMIN < 2 mcg/ml (10-30); SALIC 0.3 mg/dL (2.8-20.0)
[2021-04-14 16:41] LABS: ETHANOL 428 mg/dL (0-10)
[2021-04-14 17:35] VITALS: BP 116/73
[2021-04-14 17:59] LABS: BILIRUBIN,URINE NEGATIVE (NEG); CLARITY,URINE CLEAR; COLOR,URINE YELLOW; PROTEIN,URINE 30 mg/dL (NEG-TRACE)
[2021-04-14 18:00] LABS: NITRITE,URINE NEGATIVE (NEG); UROBILINOGEN,URINE 0.2 mg/dL (0.2 mg/dL)
[2021-04-14 18:01] LABS: BACTERIA,URINE 0 /HPF (0-FEW); RBC,URINE 0 /HPF (0-2); WBC,URINE 0 /HPF (0-4)
== END 2021-04-14 18:22 | disposition left against medical advice (07) ==
LOC: ER 14:00
DX: F10.229 Alcohol dependence with intoxication, unspecified (principal); Y90.8 Blood alcohol level of 240 mg/100 ml or more
CPT/HCPCS: 36415; 80053; 80307; 80329; 81001; 83690; 83735; 85025; 96365; 96375; 99285; G0480; J2405; J3411; J3490; J7030

== ENCOUNTER 2021-04-29 18:39 | Emergency (ER) | payer OTHER ==
[2021-04-30] MEDS ORDERED: ONDA4TAB12 PO (19:26)
== END 2021-04-29 18:50 | disposition left against medical advice (07) ==
LOC: ER 18:39
DX: S69.91XA Unspecified injury of right wrist, hand and finger(s), initial encounter (principal); Z53.21 Procedure and treatment not carried out due to patient leaving prior to being seen by health care provider; X58.XXXA Exposure to other specified factors, initial encounter; Y93.89 Activity, other specified; Y92.89 Other specified places as the place of occurrence of the external cause; Y99.8 Other external cause status

== ENCOUNTER 2021-04-30 16:48 | Emergency (ER) | payer OTHER ==
[~2021-04-30] VITALS: Ht 172.7 cm; Wt 160.0 kg
[2021-04-30] MEDS ORDERED: ONDANSETRON ODT 4 MG TAB.RAPDIS. PO ONE (19:15)
[2021-04-30] MEDS ORDERED: ONDA4TAB12 PO (19:26)
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
[2021-04-30 19:34] VITALS: BP 134/90
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
== END 2021-04-30 19:28 | disposition home or self-care (01) ==
LOC: ER 16:48
DX: S60.221A Contusion of right hand, initial encounter (principal); F10.239 Alcohol dependence with withdrawal, unspecified; Y90.9 Presence of alcohol in blood, level not specified; F17.200 Nicotine dependence, unspecified, uncomplicated; Y04.0XXA Assault by unarmed brawl or fight, initial encounter; Y93.89 Activity, other specified; Y92.89 Other specified places as the place of occurrence of the external cause; Y99.8 Other external cause status
CPT/HCPCS: 73130; 99283